=== PATIENT | male | born 1990 | race African-American/Black ===

== ENCOUNTER 2018-01-27 12:25 | Emergency (ER) | payer MEDICAID, OTHER ==
[~2018-01-27] VITALS: Ht 172.7 cm; Wt 64.0 kg
[2018-01-27 12:30] VITALS: BP 105/65
--- NOTE | 2018-01-27 12:39 | NUR ---
PT AMBULATED TO ER BED 08
--- NOTE | 2018-01-27 12:53 | NUR ---
bib self with c/o 11/30 toothache x 2 wks[address] Patient [address] apt for removal of teeth on 02/09/18. No relief with OTC medication. hx--patient denies rx--patient denies
--- NOTE | 2018-01-27 12:59 | NUR ---
REPORT GIVEN TO JESSA CRUZ
--- NOTE | 2018-01-27 13:38 | NUR ---
PATIENT LEFT WITHOUT BEING SEEN BY DR. CHRISTIANSON. NO FURTHER CARE PROVIDED FOR PATIENT.
== END 2018-01-27 13:38 | disposition left against medical advice (07) ==
LOC: MED 12:25
DX: K08.89 Other specified disorders of teeth and supporting structures (principal); Z53.21 Procedure and treatment not carried out due to patient leaving prior to being seen by health care provider